=== PATIENT | female | born 1930 | race Caucasian/White ===

== ENCOUNTER 2017-01-17 09:28 | Emergency (ER) | payer OTHER ==
[~2017-01-17] VITALS: Ht 160 cm; Wt 59.3 kg
[~2017-01-17 09:28] MED LIST: ADULT LOW DOSE81 M1 PO; ARIMIDEX1 MG PO; CALCIUM300 MG PO; COLACE100 MG PO; HYDROCODON-ACE1 EAC7 PO; LORTAB 5-325 M1 EACH PO; MEDROL DOSEPAK4 MG PO; MULTIVITAMIN1 EAC1 PO; NORVASC5 M1 PO; NORVASC5 MG PO; SIMVASTATIN5 MG PO; SKELAXIN800 MG PO; VITAMIN C100 M1 PO; ZOCOR5 MG PO; ZOLOFT50 MG PO
[2017-01-17 12:39] VITALS: BP 164/83
== END 2017-01-17 12:40 | disposition home or self-care (01) ==
LOC: EME 09:28
PROC: 0HQGXZZ Repair Left Hand Skin, External Approach (ICD-10-PCS; principal; 2017-01-17)
DX: S61.412A Laceration without foreign body of left hand, initial encounter (principal); W01.0XXA Fall on same level from slipping, tripping and stumbling without subsequent striking against object, initial encounter; I10 Essential (primary) hypertension; E78.5 Hyperlipidemia, unspecified; Z79.82 Long term (current) use of aspirin; Z85.3 Personal history of malignant neoplasm of breast; Z88.2 Allergy status to sulfonamides
CPT/HCPCS: 99281; 99284

== ENCOUNTER 2017-12-31 08:57 | Day surgery (SDC) | payer OTHER ==
[~2017-12-31] VITALS: Ht 160 cm; Wt 63.1 kg
[~2017-12-31 08:57] MED LIST changes: +ADVIL200 MG PO; +ARICEPT10 MG PO; +HYGROTON25 MG PO; +K-DUR10 MEQ PO; +MIRALAX17 GM PO; +RISPERDAL1 MG PO
== END 2017-12-31 13:02 | disposition home or self-care (01) ==
LOC: PAIN 08:57 → SDC 09:30 → PAIN 13:02
PROC: 3E0T3BZ Introduction of Anesthetic Agent into Peripheral Nerves and Plexi, Percutaneous Approach (ICD-10-PCS; principal; 2017-12-31)
PROC: 3E0T33Z Introduction of Anti-inflammatory into Peripheral Nerves and Plexi, Percutaneous Approach (ICD-10-PCS; principal; 2017-12-31)
PROC: BR161ZZ Fluoroscopy of Lumbar Facet Joint(s) using Low Osmolar Contrast (ICD-10-PCS; principal; 2017-12-31)
DX: M47.816 Spondylosis without myelopathy or radiculopathy, lumbar region (principal); M99.83 Other biomechanical lesions of lumbar region; M48.061 Spinal stenosis, lumbar region without neurogenic claudication
CPT/HCPCS: J1030; S0020

== ENCOUNTER 2018-01-08 08:50 | Day surgery (SDC) | payer OTHER ==
[~2018-01-08] VITALS: Ht 160 cm; Wt 63.1 kg
== END 2018-01-08 11:25 | disposition home or self-care (01) ==
LOC: PAIN 08:50 → SDC 09:15 → PAIN 09:15
DX: M47.816 Spondylosis without myelopathy or radiculopathy, lumbar region (principal); M48.061 Spinal stenosis, lumbar region without neurogenic claudication; I10 Essential (primary) hypertension; E78.5 Hyperlipidemia, unspecified; Z85.3 Personal history of malignant neoplasm of breast; Z86.73 Personal history of transient ischemic attack (TIA), and cerebral infarction without residual deficits; Z79.82 Long term (current) use of aspirin
CPT/HCPCS: J1030; J3010; S0020

== ENCOUNTER 2018-01-29 10:49 | Day surgery (SDC) | payer OTHER ==
[~2018-01-29] VITALS: Ht 160 cm; Wt 63.1 kg
== END 2018-01-29 12:50 | disposition home or self-care (01) ==
LOC: PAIN 10:49 → SDC 11:15 → PAIN 12:50
DX: M47.816 Spondylosis without myelopathy or radiculopathy, lumbar region (principal); M54.16 Radiculopathy, lumbar region; M48.061 Spinal stenosis, lumbar region without neurogenic claudication; I10 Essential (primary) hypertension; E78.5 Hyperlipidemia, unspecified; Z85.3 Personal history of malignant neoplasm of breast; Z85.828 Personal history of other malignant neoplasm of skin; Z79.82 Long term (current) use of aspirin
CPT/HCPCS: J1030; J2250; J3010; S0020

== ENCOUNTER 2018-02-05 08:05 | Day surgery (SDC) | payer OTHER ==
[~2018-02-05] VITALS: Ht 160 cm; Wt 63.1 kg
== END 2018-02-05 09:55 | disposition home or self-care (01) ==
LOC: PAIN 08:05
PROC: BR161ZZ Fluoroscopy of Lumbar Facet Joint(s) using Low Osmolar Contrast (ICD-10-PCS; principal; 2018-02-05)
PROC: 3E0T3TZ Introduction of Destructive Agent into Peripheral Nerves and Plexi, Percutaneous Approach (ICD-10-PCS; principal; 2018-02-05)
DX: M47.816 Spondylosis without myelopathy or radiculopathy, lumbar region (principal); M48.061 Spinal stenosis, lumbar region without neurogenic claudication; I10 Essential (primary) hypertension; E78.5 Hyperlipidemia, unspecified; I35.0 Nonrheumatic aortic (valve) stenosis; Z79.82 Long term (current) use of aspirin; Z79.891 Long term (current) use of opiate analgesic; Z85.3 Personal history of malignant neoplasm of breast
CPT/HCPCS: J1030; J2250; J3010; S0020